=== PATIENT | male | born 1990 | race Two or more races ===

== ENCOUNTER 2022-11-11 13:05 | Inpatient (IN) | payer OTHER ==
[2022-11-11 13:43] VITALS: BMI 18.4
[2022-11-11] MEDS ORDERED: NALOXONE HCL 0.4 MG/ML VIAL IM PRN (15:17)
[2022-11-11] MEDS ORDERED: IBUPROFEN 400 MG TABLET (FP) PO PRN (15:17)
[2022-11-11] MEDS ORDERED: ONDANSETRON *ODT* 4 MG TABLET SL PRN (15:17)
[2022-11-11] MEDS ORDERED: LOPERAMIDE HCL 2 MG CAPSULE PO PRN (15:17)
[2022-11-11] MEDS ORDERED: ACETAMINOPHEN 325 MG TABLET (FP) PO PRN (15:17)
[2022-11-11] MEDS ORDERED: NICOTINE 10 MG CARTRIDGE (INHALER) IH PRN (15:17)
[2022-11-11] MEDS ORDERED: MAG HYDROX/AL HYDROX/SIMETH 30 ML UNIT-DOSE CUP PO PRN (15:17)
[2022-11-11] MEDS ORDERED: MAGNESIUM HYDROX 2400MG/30ML ORAL SUSPENSION 30 ML CUP PO PRN (15:17)
[2022-11-11] MEDS ORDERED: BENZONATATE 200 MG CAPSULE PO PRN (15:17)
[2022-11-11] MEDS ORDERED: BENZOCAINE/MENTHOL (CHLORASEPTIC ) LOZENGE MM PRN (15:17)
[2022-11-11] MEDS ORDERED: guaiFENesin 600 MG TABLET.ER (FP) PO PRN (15:17)
[2022-11-11] MEDS ORDERED: BISMUTH SUBSALICYLATE 524 MG/30 ML PO PRN (15:17)
[2022-11-11] MEDS ORDERED: IBUPROFEN 600 MG TABLET (FP) PO PRN (15:17)
[2022-11-11] MEDS ORDERED: NALOXONE HCL (KLOXXADO) 8 MG SPRAY NS PRN (15:17)
[2022-11-11] MEDS ORDERED: POLYETHYLENE GLYCOL (HEALTHYLAX) 3350 17 GM PACKET PO PRN (15:17)
[2022-11-11] MEDS ORDERED: DICYCLOMINE HCL 10 MG CAPSULE PO PRN (15:17)
[2022-11-11] MEDS ORDERED: cloNIDine HCL 0.1 MG TABLET PO PRN (15:17)
[2022-11-11] MEDS ORDERED: diazePAM 5 MG TABLET PO PRN (15:25)
[2022-11-11] MEDS ORDERED: methaDONE HCL 10 MG TABLET (FOR DETOX USE ONLY) PO ONE (16:00)
[2022-11-11] MEDS ORDERED: methaDONE HCL 10 MG TABLET (FOR DETOX USE ONLY) ONE (16:09)
[2022-11-11] MEDS: MELATONIN 5 MG TABLETS PO SCH (22:50)
[2022-11-11] MEDS: THIAMINE HCL 100 MG TABLET (FP) PO SCH (22:50)
[2022-11-12] MEDS: METHOCARBAMOL 500 MG TABLET PO PRN (10:44)
[2022-11-12] MEDS: PRENATAL VITAMINS W/ FOLIC ACID TABLET (FP) PO SCH (10:44)
[2022-11-12 17:48] LABS: HEMATOCRIT 39.8 % (35.4-49); HEMOGLOBIN 12.6 GM/dL (11.7-16.9); MCH 24.2 pg (25.7-33.7); MCHC 31.6 g/dl (32.0-35.9); MEAN CELL VOLUME 76.4 fl (80-96); MEAN PLT VOLUME 8.9 fl (7.5-11.1); PLATELET COUNT 267 10^3/uL (134-434); RBC 5.21 M/mm3 (4.00-5.60); RDW 14.8 % (11.9-15.9); WHITE BLOOD COUNT 6.7 K/mm3 (4.0-10.0)
[2022-11-12 18:00] LABS: POTASSIUM 4.2 mmol/L (3.5-5.1)
[2022-11-12 18:09] LABS: BLOOD UREA NITROGEN 17.4 mg/dL (7-18)
[2022-11-12 18:11] LABS: CALCIUM 9.1 mg/dL (8.5-10.1)
[2022-11-12 18:13] LABS: CREATININE 0.9 mg/dL (0.55-1.3)
[2022-11-12 18:15] LABS: TOT PROT 5.9 g/dl (6.4-8.2)
[2022-11-12 18:18] LABS: BILIRUBIN,TOTAL 0.3 mg/dL (0.2-1)
[2022-11-12] MEDS: THIAMINE HCL 100 MG TABLET (FP) PO SCH (22:36)
[2022-11-12] MEDS: MELATONIN 5 MG TABLETS PO SCH (22:36)
[2022-11-13] MEDS ORDERED: methaDONE HCL 10 MG TABLET (FOR DETOX USE ONLY) PO ONE (10:00)
[2022-11-13] MEDS: PRENATAL VITAMINS W/ FOLIC ACID TABLET (FP) PO SCH (10:12)
[2022-11-13] MEDS: MELATONIN 5 MG TABLETS PO SCH (22:12)
[2022-11-13] MEDS: THIAMINE HCL 100 MG TABLET (FP) PO SCH (22:12)
[2022-11-13] MEDS: METHOCARBAMOL 500 MG TABLET PO PRN (22:13)
[2022-11-13] MEDS: hydrOXYzine PAMOATE 25 MG CAPSULE (FP) PO PRN (22:13)
[2022-11-14] MEDS: PRENATAL VITAMINS W/ FOLIC ACID TABLET (FP) PO SCH (10:36)
[2022-11-14] MEDS: THIAMINE HCL 100 MG TABLET (FP) PO SCH (22:54)
[2022-11-14] MEDS: MELATONIN 5 MG TABLETS PO SCH (22:54)
[2022-11-15] MEDS ORDERED: methaDONE HCL 10 MG TABLET (FOR DETOX USE ONLY) PO ONE (10:00)
[2022-11-15] MEDS: PRENATAL VITAMINS W/ FOLIC ACID TABLET (FP) PO SCH (10:31)
[2022-11-15] MEDS: hydrOXYzine PAMOATE 25 MG CAPSULE (FP) PO PRN (22:08)
[2022-11-15] MEDS: MELATONIN 5 MG TABLETS PO SCH (22:08)
[2022-11-15] MEDS: THIAMINE HCL 100 MG TABLET (FP) PO SCH (22:08)
[2022-11-16 09:14] VITALS: BP 100/68; PULSE 80; RESP 17; TEMP 97.5
[2022-11-16] MEDS: PRENATAL VITAMINS W/ FOLIC ACID TABLET (FP) PO SCH (10:21)
== END 2022-11-16 10:07 | disposition home or self-care (01) | DRG 773 ==
LOC: YASAS 13:05 → Y3N 17:22
PROVIDERS: ADMIT Allergy & Immunology; ATTEND Surgery
PROC: HZ2ZZZZ Detoxification Services for Substance Abuse Treatment (ICD-10-PCS; principal; 2022-11-11)
DX: F11.23 Opioid dependence with withdrawal (principal); E86.0 Dehydration; F17.210 Nicotine dependence, cigarettes, uncomplicated
CPT/HCPCS: 36415; 80053; 85027; 86780; 93005; 93010; C9803-CS; U0003; U0005

== ENCOUNTER 2023-01-17 16:13 | Inpatient (IN) | payer OTHER ==
[2023-01-17 19:32] VITALS: BMI 21.4
[2023-01-17] MEDS ORDERED: ACETAMINOPHEN 325 MG TABLET (FP) PO PRN (21:45)
[2023-01-17] MEDS ORDERED: BENZONATATE 200 MG CAPSULE PO PRN (21:45)
[2023-01-17] MEDS ORDERED: guaiFENesin 600 MG TABLET.ER (FP) PO PRN (21:45)
[2023-01-17] MEDS ORDERED: BISMUTH SUBSALICYLATE 524 MG/30 ML PO PRN (21:45)
[2023-01-17] MEDS ORDERED: IBUPROFEN 400 MG TABLET (FP) PO PRN (21:45)
[2023-01-17] MEDS ORDERED: BENZOCAINE/MENTHOL (CHLORASEPTIC ) LOZENGE MM PRN (21:45)
[2023-01-17] MEDS ORDERED: NALOXONE HCL 0.4 MG/ML VIAL IM PRN (21:45)
[2023-01-17] MEDS ORDERED: ONDANSETRON *ODT* 4 MG TABLET SL PRN (21:45)
[2023-01-17] MEDS ORDERED: NICOTINE POLACRILEX 2 MG GUM BUC PRN (21:45)
[2023-01-17] MEDS ORDERED: MAG HYDROX/AL HYDROX/SIMETH 30 ML UNIT-DOSE CUP PO PRN (21:45)
[2023-01-17] MEDS ORDERED: P-EPHED 60MG/TRIPROLIDI 2.5MG TABLET PO PRN (21:45)
[2023-01-17] MEDS ORDERED: IBUPROFEN 600 MG TABLET (FP) PO PRN (21:45)
[2023-01-17] MEDS ORDERED: LOPERAMIDE HCL 2 MG CAPSULE PO PRN (21:45)
[2023-01-17] MEDS ORDERED: MAGNESIUM HYDROX 2400MG/30ML ORAL SUSPENSION 30 ML CUP PO PRN (21:45)
[2023-01-17] MEDS ORDERED: DICYCLOMINE HCL 10 MG CAPSULE PO PRN (21:45)
[2023-01-17] MEDS ORDERED: NALOXONE HCL (KLOXXADO) 8 MG SPRAY NS PRN (21:45)
[2023-01-17] MEDS ORDERED: POLYETHYLENE GLYCOL (HEALTHYLAX) 3350 17 GM PACKET PO PRN (21:45)
[2023-01-17] MEDS ORDERED: cloNIDine HCL 0.1 MG TABLET PO PRN (21:48)
[2023-01-17] MEDS: diazePAM 5 MG TABLET PO PRN (22:50)
[2023-01-17] MEDS: THIAMINE HCL 100 MG TABLET (FP) PO SCH (22:50)
[2023-01-17] MEDS: MELATONIN 5 MG TABLETS PO SCH (22:52)
[2023-01-18] MEDS ORDERED: methaDONE HCL 10 MG TABLET (FOR DETOX USE ONLY) PO ONE (09:28)
[2023-01-18] MEDS: PRENATAL VITAMINS W/ FOLIC ACID TABLET (FP) PO SCH (09:47)
[2023-01-18] MEDS: hydrOXYzine PAMOATE 25 MG CAPSULE (FP) PO PRN (09:48)
[2023-01-18] MEDS: METHOCARBAMOL 500 MG TABLET PO PRN (09:48)
[2023-01-18 11:41] LABS: HEMATOCRIT 38.3 % (35.4-49); HEMOGLOBIN 12.4 GM/dL (11.7-16.9); MCH 24.6 pg (25.7-33.7); MCHC 32.3 g/dl (32.0-35.9); MEAN CELL VOLUME 76.1 fl (80-96); MEAN PLT VOLUME 9.1 fl (7.5-11.1); PLATELET COUNT 300 10^3/uL (134-434); RBC 5.03 M/mm3 (4.00-5.60); RDW 14.8 % (11.9-15.9); WHITE BLOOD COUNT 9.8 K/mm3 (4.0-10.0)
[2023-01-18 12:17] LABS: CHLORIDE 109 mmol/L (98-107); POTASSIUM 4.5 mmol/L (3.5-5.1); SODIUM 144 mmol/L (136-145)
[2023-01-18 12:25] LABS: ANION GAP 6 MMOL/L (8-16); CO2 28 mmol/L (21-32)
[2023-01-18 12:26] LABS: BLOOD UREA NITROGEN 11.6 mg/dL (7-18); GLUCOSE,RANDOM 104 mg/dL (74-106)
[2023-01-18 12:28] LABS: CREATININE 0.7 mg/dL (0.55-1.3); SGPT/ALT 24 U/L (13-61)
[2023-01-18 12:29] LABS: SGOT/AST 13 U/L (15-37)
[2023-01-18 12:30] LABS: BILIRUBIN,TOTAL < 0.1 mg/dL (0.2-1); TOT PROT 6.1 g/dl (6.4-8.2)
[2023-01-18 12:31] LABS: ALK PHOS 98 U/L (45-117)
[2023-01-18] MEDS: MELATONIN 5 MG TABLETS PO SCH (22:51)
[2023-01-18] MEDS: THIAMINE HCL 100 MG TABLET (FP) PO SCH (22:51)
[2023-01-18] MEDS: diazePAM 5 MG TABLET PO PRN (22:52)
[2023-01-19] MEDS: hydrOXYzine PAMOATE 25 MG CAPSULE (FP) PO PRN (10:31)
[2023-01-19] MEDS: PRENATAL VITAMINS W/ FOLIC ACID TABLET (FP) PO SCH (10:31)
[2023-01-19] MEDS: diazePAM 5 MG TABLET PO PRN ×2 (10:32→22:52)
[2023-01-19] MEDS: THIAMINE HCL 100 MG TABLET (FP) PO SCH (22:52)
[2023-01-19] MEDS: MELATONIN 5 MG TABLETS PO SCH (22:52)
[2023-01-20] MEDS ORDERED: methaDONE HCL 10 MG TABLET (FOR DETOX USE ONLY) PO ONE (10:00)
[2023-01-20] MEDS: hydrOXYzine PAMOATE 25 MG CAPSULE (FP) PO PRN (10:45)
[2023-01-20] MEDS: METHOCARBAMOL 500 MG TABLET PO PRN (10:45)
[2023-01-20] MEDS: PRENATAL VITAMINS W/ FOLIC ACID TABLET (FP) PO SCH (10:45)
[2023-01-20] MEDS: MELATONIN 5 MG TABLETS PO SCH (22:34)
[2023-01-20] MEDS: THIAMINE HCL 100 MG TABLET (FP) PO SCH (22:34)
[2023-01-21] MEDS: hydrOXYzine PAMOATE 25 MG CAPSULE (FP) PO PRN (10:04)
[2023-01-21] MEDS: PRENATAL VITAMINS W/ FOLIC ACID TABLET (FP) PO SCH (10:04)
[2023-01-21] MEDS: METHOCARBAMOL 500 MG TABLET PO PRN (10:04)
[2023-01-21 17:07] VITALS: RESP 16
[2023-01-22] MEDS: THIAMINE HCL 100 MG TABLET (FP) PO SCH (00:10)
[2023-01-22] MEDS: MELATONIN 5 MG TABLETS PO SCH (00:10)
[2023-01-22 09:29] VITALS: BP 109/59; PULSE 78; TEMP 97.3
[2023-01-22] MEDS ORDERED: methaDONE HCL 10 MG TABLET (FOR DETOX USE ONLY) PO ONE (10:00)
[2023-01-22] MEDS: METHOCARBAMOL 500 MG TABLET PO PRN (10:13)
[2023-01-22] MEDS: hydrOXYzine PAMOATE 25 MG CAPSULE (FP) PO PRN (10:13)
[2023-01-22] MEDS: PRENATAL VITAMINS W/ FOLIC ACID TABLET (FP) PO SCH (10:13)
== END 2023-01-22 12:05 | disposition home or self-care (01) | DRG 773 ==
LOC: YASAS 16:13 → Y6N 22:19
PROVIDERS: ADMIT Allergy & Immunology; ATTEND Surgery
PROC: HZ2ZZZZ Detoxification Services for Substance Abuse Treatment (ICD-10-PCS; principal; 2023-01-17)
DX: F11.23 Opioid dependence with withdrawal (principal); F15.10 Other stimulant abuse, uncomplicated; F17.290 Nicotine dependence, other tobacco product, uncomplicated
CPT/HCPCS: 36415; 80053; 85027; 86780; 87635

== ENCOUNTER 2023-09-28 16:38 | Inpatient (IN) | payer OTHER ==
[2023-09-28 17:37] VITALS: BMI 20.3
[2023-09-28] MEDS ORDERED: BENZOCAINE/MENTHOL (CHLORASEPTIC ) LOZENGE MM PRN (18:22)
[2023-09-28] MEDS ORDERED: NICOTINE POLACRILEX 2 MG GUM BUC PRN (18:22)
[2023-09-28] MEDS ORDERED: POLYETHYLENE GLYCOL (HEALTHYLAX) 3350 17 GM PACKET PO PRN (18:22)
[2023-09-28] MEDS ORDERED: IBUPROFEN 400 MG TABLET (FP) PO PRN (18:22)
[2023-09-28] MEDS ORDERED: NALOXONE HCL 0.4 MG/ML VIAL IM PRN (18:22)
[2023-09-28] MEDS ORDERED: MAGNESIUM HYDROX 2400MG/30ML ORAL SUSPENSION 30 ML CUP PO PRN (18:22)
[2023-09-28] MEDS ORDERED: IBUPROFEN 600 MG TABLET (FP) PO PRN (18:22)
[2023-09-28] MEDS ORDERED: BISMUTH SUBSALICYLATE 524 MG/30 ML PO PRN (18:22)
[2023-09-28] MEDS ORDERED: NALOXONE HCL (KLOXXADO) 8 MG SPRAY NS PRN (18:22)
[2023-09-28] MEDS ORDERED: LOPERAMIDE HCL 2 MG CAPSULE PO PRN (18:22)
[2023-09-28] MEDS ORDERED: MAG HYDROX/AL HYDROX/SIMETH 30 ML UNIT-DOSE CUP PO PRN (18:22)
[2023-09-28] MEDS ORDERED: BENZONATATE 200 MG CAPSULE PO PRN (18:22)
[2023-09-28] MEDS ORDERED: DICYCLOMINE HCL 10 MG CAPSULE PO PRN (18:22)
[2023-09-28] MEDS ORDERED: ONDANSETRON *ODT* 4 MG TABLET SL PRN (18:22)
[2023-09-28] MEDS ORDERED: guaiFENesin 600 MG TABLET.ER (FP) PO PRN (18:22)
[2023-09-28] MEDS ORDERED: ACETAMINOPHEN 325 MG TABLET (FP) PO PRN (18:22)
[2023-09-28] MEDS: MELATONIN 5 MG TABLETS PO SCH (22:29)
[2023-09-28] MEDS: THIAMINE HCL 100 MG TABLET (FP) PO SCH (22:29)
[2023-09-29] MEDS ORDERED: cloNIDine HCL 0.1 MG TABLET PO PRN (09:58)
[2023-09-29] MEDS: PRENATAL VITAMINS W/ FOLIC ACID TABLET (FP) PO SCH (10:33)
[2023-09-29] MEDS: methaDONE HCL 10 MG TABLET (FOR DETOX USE ONLY) PO ONE (10:33)
[2023-09-29 15:25] LABS: POTASSIUM 4.2 mmol/L (3.5-5.1)
[2023-09-29 15:26] LABS: CALCIUM 8.7 mg/dL (8.5-10.1)
[2023-09-29 15:27] LABS: ALBUMIN 3.1 g/dl (3.4-5.0); BLOOD UREA NITROGEN 17.5 mg/dL (7-18)
[2023-09-29 15:30] LABS: CREATININE 0.7 mg/dL (0.55-1.3)
[2023-09-29 15:32] LABS: BILIRUBIN,TOTAL 0.2 mg/dL (0.2-1); TOT PROT 6.1 g/dl (6.4-8.2)
[2023-09-29 15:40] LABS: HEMATOCRIT 40.2 % (35.4-49); HEMOGLOBIN 12.5 GM/dL (11.7-16.9); MCH 24.7 pg (25.7-33.7); MEAN CELL VOLUME 79.8 fl (80-96); MEAN PLT VOLUME 9.4 fl (7.5-11.1); PLATELET COUNT 326 10^3/uL (134-434); RBC 5.04 M/mm3 (4.00-5.60); RDW 14.8 % (11.9-15.9); WHITE BLOOD COUNT 6.6 K/mm3 (4.0-10.0)
[2023-09-29] MEDS: METHOCARBAMOL 500 MG TABLET PO PRN (22:27)
[2023-10-01] MEDS: methaDONE HCL 10 MG TABLET (FOR DETOX USE ONLY) PO ONE (09:24)
[2023-10-01 21:06] VITALS: BP 101/61; PULSE 74; RESP 16; TEMP 98.4
[2023-10-03] MEDS ORDERED: methaDONE HCL 10 MG TABLET (FOR DETOX USE ONLY) PO ONE (10:00)
== END 2023-10-01 22:07 | disposition left against medical advice (07) | DRG 770 ==
LOC: YASAS 16:38 → Y3N 18:41
PROVIDERS: ADMIT Allergy & Immunology; ATTEND Surgery
PROC: HZ2ZZZZ Detoxification Services for Substance Abuse Treatment (ICD-10-PCS; principal; 2023-09-28)
DX: F11.23 Opioid dependence with withdrawal (principal); F17.290 Nicotine dependence, other tobacco product, uncomplicated; Z28.310 Unvaccinated for COVID-19; Z28.9 Immunization not carried out for unspecified reason
CPT/HCPCS: 36415; 80053; 85027; 86780; 93005; 93010

== ENCOUNTER 2024-02-17 12:42 | Inpatient (IN) | payer OTHER ==
[2024-02-17 13:32] VITALS: BMI 18.4
[2024-02-17] MEDS ORDERED: NALOXONE (NARCAN) HCL 4 MG/0.1 ML SPRAY NS PRN (19:10)
[2024-02-17] MEDS ORDERED: DICYCLOMINE HCL 10 MG CAPSULE PO PRN (19:10)
[2024-02-17] MEDS ORDERED: BENZONATATE 200 MG CAPSULE PO PRN (19:10)
[2024-02-17] MEDS ORDERED: NALOXONE HCL 0.4 MG/ML VIAL IM PRN (19:10)
[2024-02-17] MEDS ORDERED: MAG HYDROX/AL HYDROX/SIMETH 30 ML UNIT-DOSE CUP PO PRN (19:10)
[2024-02-17] MEDS ORDERED: ONDANSETRON *ODT* 4 MG TABLET SL PRN (19:10)
[2024-02-17] MEDS ORDERED: POLYETHYLENE GLYCOL (HEALTHYLAX) 3350 17 GM PACKET PO PRN (19:10)
[2024-02-17] MEDS ORDERED: BISMUTH SUBSALICYLATE 524 MG/30 ML PO PRN (19:10)
[2024-02-17] MEDS ORDERED: MAGNESIUM HYDROX 2400MG/30ML ORAL SUSPENSION 30 ML CUP PO PRN (19:10)
[2024-02-17] MEDS ORDERED: IBUPROFEN 400 MG TABLET (FP) PO PRN (19:10)
[2024-02-17] MEDS ORDERED: IBUPROFEN 600 MG TABLET (FP) PO PRN (19:10)
[2024-02-17] MEDS ORDERED: BENZOCAINE/MENTHOL (CHLORASEPTIC ) LOZENGE MM PRN (19:10)
[2024-02-17] MEDS ORDERED: guaiFENesin 600 MG TABLET.ER (FP) PO PRN (19:10)
[2024-02-17] MEDS ORDERED: LOPERAMIDE HCL 2 MG CAPSULE PO PRN (19:10)
[2024-02-17] MEDS ORDERED: ACETAMINOPHEN 325 MG TABLET (FP) PO PRN (19:10)
[2024-02-17] MEDS: METHOCARBAMOL 500 MG TABLET PO PRN (19:52)
[2024-02-17] MEDS: hydrOXYzine PAMOATE 25 MG CAPSULE (FP) PO PRN (19:52)
[2024-02-17] MEDS: MELATONIN 5 MG TABLETS PO SCH (22:36)
[2024-02-17] MEDS: THIAMINE 100 MG TABLET PO SCH (22:36)
[2024-02-18] MEDS: PRENATAL VITAMINS W/ FOLIC ACID TABLET (FP) PO SCH (10:35)
[2024-02-18] MEDS ORDERED: cloNIDine HCL 0.1 MG TABLET PO PRN (11:02)
[2024-02-18 11:05] LABS: CHLORIDE 107 mmol/L (98-107); HEMATOCRIT 39.1 % (35.4-49); HEMOGLOBIN 12.1 GM/dL (11.7-16.9); MCH 24.3 pg (25.7-33.7); MCHC 30.9 g/dl (32.0-35.9); MEAN CELL VOLUME 78.8 fl (80-96); MEAN PLT VOLUME 8.6 fl (7.5-11.1); PLATELET COUNT 337 10^3/uL (134-434); POTASSIUM 4.7 mmol/L (3.5-5.1); RBC 4.96 M/mm3 (4.00-5.60); RDW 15.1 % (11.9-15.9); SODIUM 139 mmol/L (136-145); WHITE BLOOD COUNT 5.5 K/mm3 (4.0-10.0)
[2024-02-18 11:06] LABS: CALCIUM 9.2 mg/dL (8.5-10.1)
[2024-02-18 11:07] LABS: ALBUMIN 3.2 g/dl (3.4-5.0); ANION GAP 3 mmol/L (4-13); BLOOD UREA NITROGEN 20.5 mg/dL (7-18); CO2 29 mmol/L (21-32); GLUCOSE,RANDOM 95 mg/dL (74-106)
[2024-02-18 11:10] LABS: CREATININE 0.7 mg/dL (0.55-1.3); SGOT/AST 13 U/L (15-37); SGPT/ALT 17 U/L (13-61)
[2024-02-18 11:11] LABS: BILIRUBIN,TOTAL 0.5 mg/dL (0.2-1)
[2024-02-18 11:13] LABS: ALK PHOS 78 U/L (45-117)
[2024-02-18] MEDS: methaDONE HCL 10 MG TABLET (FOR DETOX USE ONLY) PO ONE (11:32)
[2024-02-18] MEDS: diazePAM 5 MG TABLET PO PRN (11:32)
[2024-02-20] MEDS: methaDONE HCL 10 MG TABLET (FOR DETOX USE ONLY) PO ONE (10:21)
[2024-02-22 06:27] VITALS: RESP 18
[2024-02-22 08:46] VITALS: BP 113/70; PULSE 78; TEMP 96.7
[2024-02-22] MEDS: methaDONE HCL 10 MG TABLET (FOR DETOX USE ONLY) PO ONE (10:29)
== END 2024-02-22 02:27 | disposition home or self-care (01) | DRG 773 ==
LOC: YASAS 12:42 → Y3N 19:17
PROVIDERS: ADMIT Surgery; ATTEND Surgery
PROC: HZ2ZZZZ Detoxification Services for Substance Abuse Treatment (ICD-10-PCS; principal; 2024-02-17)
DX: F11.23 Opioid dependence with withdrawal (principal); F15.20 Other stimulant dependence, uncomplicated; F17.290 Nicotine dependence, other tobacco product, uncomplicated; Z59.01 Sheltered homelessness
CPT/HCPCS: 36415; 80053; 80305; 80307; 85027; 86780; 93005; 93010

== ENCOUNTER 2024-04-13 08:51 | Inpatient (IN) | payer OTHER ==
[2024-04-13 10:23] VITALS: BMI 19.0
[2024-04-13] MEDS ORDERED: guaiFENesin 600 MG TABLET.ER (FP) PO PRN (11:34)
[2024-04-13] MEDS ORDERED: NALOXONE (NARCAN) HCL 4 MG/0.1 ML SPRAY NS PRN (11:34)
[2024-04-13] MEDS ORDERED: BENZOCAINE/MENTHOL (CHLORASEPTIC ) LOZENGE MM PRN (11:34)
[2024-04-13] MEDS ORDERED: BENZONATATE 200 MG CAPSULE PO PRN (11:34)
[2024-04-13] MEDS ORDERED: ONDANSETRON *ODT* 4 MG TABLET SL PRN (11:34)
[2024-04-13] MEDS ORDERED: DICYCLOMINE HCL 10 MG CAPSULE PO PRN (11:34)
[2024-04-13] MEDS ORDERED: MAGNESIUM HYDROX 2400MG/30ML ORAL SUSPENSION 30 ML CUP PO PRN (11:34)
[2024-04-13] MEDS ORDERED: MAG HYDROX/AL HYDROX/SIMETH 30 ML UNIT-DOSE CUP PO PRN (11:34)
[2024-04-13] MEDS ORDERED: LOPERAMIDE HCL 2 MG CAPSULE PO PRN (11:34)
[2024-04-13] MEDS ORDERED: ACETAMINOPHEN 325 MG TABLET (FP) PO PRN (11:34)
[2024-04-13] MEDS ORDERED: hydrOXYzine PAMOATE 25 MG CAPSULE (FP) PO PRN (11:34)
[2024-04-13] MEDS ORDERED: BISMUTH SUBSALICYLATE 524 MG/30 ML PO PRN (11:34)
[2024-04-13] MEDS ORDERED: IBUPROFEN 400 MG TABLET (FP) PO PRN (11:34)
[2024-04-13] MEDS ORDERED: POLYETHYLENE GLYCOL (HEALTHYLAX) 3350 17 GM PACKET PO PRN (11:34)
[2024-04-13] MEDS ORDERED: cloNIDine HCL 0.1 MG TABLET PO PRN (11:45)
[2024-04-13] MEDS: methaDONE HCL 10 MG TABLET (FOR DETOX USE ONLY) PO ONE (17:33)
[2024-04-13] MEDS: MELATONIN 5 MG TABLETS PO SCH (22:47)
[2024-04-13] MEDS: THIAMINE 100 MG TABLET PO SCH (22:47)
[2024-04-14] MEDS: NICOTINE 14 MG/24 HOURS TOPICAL PATCH TD SCH (09:48)
[2024-04-14] MEDS: PRENATAL VITAMINS W/ FOLIC ACID TABLET (FP) PO SCH (09:48)
[2024-04-14 14:05] LABS: HEMATOCRIT 41.6 % (35.4-49); HEMOGLOBIN 12.8 GM/dL (11.7-16.9); MCH 24.5 pg (25.7-33.7); MCHC 30.7 g/dl (32.0-35.9); MEAN CELL VOLUME 79.8 fl (80-96); MEAN PLT VOLUME 8.8 fl (7.5-11.1); PLATELET COUNT 306 10^3/uL (134-434); RBC 5.22 M/mm3 (4.00-5.60); RDW 15.1 % (11.9-15.9); WHITE BLOOD COUNT 5.1 K/mm3 (4.0-10.0)
[2024-04-14 14:31] LABS: CHLORIDE 111 mmol/L (98-107); POTASSIUM 4.4 mmol/L (3.5-5.1); SODIUM 139 mmol/L (136-145)
[2024-04-14 14:33] LABS: BLOOD UREA NITROGEN 8.7 mg/dL (7-18); CALCIUM 8.9 mg/dL (8.5-10.1)
[2024-04-14 14:34] LABS: ALBUMIN 3.2 g/dl (3.4-5.0); ANION GAP -1 mmol/L (4-13); CO2 29 mmol/L (21-32); GLUCOSE,RANDOM 103 mg/dL (74-106)
[2024-04-14 14:37] LABS: CREATININE 0.7 mg/dL (0.55-1.3); SGOT/AST 16 U/L (15-37); SGPT/ALT 22 U/L (13-61)
[2024-04-14 14:39] LABS: TOT PROT 6.3 g/dl (6.4-8.2)
[2024-04-14 14:40] LABS: ALK PHOS 86 U/L (45-117)
[2024-04-14 14:48] LABS: BILIRUBIN,TOTAL 0.1 mg/dL (0.2-1)
[2024-04-15] MEDS: methaDONE HCL 10 MG TABLET (FOR DETOX USE ONLY) PO ONE (09:57)
[2024-04-17] MEDS: methaDONE HCL 10 MG TABLET (FOR DETOX USE ONLY) PO ONE (10:51)
[2024-04-17] MEDS: IBUPROFEN 600 MG TABLET (FP) PO PRN (17:15)
[2024-04-17] MEDS: METHOCARBAMOL 500 MG TABLET PO PRN (17:15)
[2024-04-17] MEDS: BACITRACIN 0.9 GM PACKET TP ONE (23:32)
[2024-04-18 09:26] VITALS: BP 102/61; PULSE 74; RESP 18; TEMP 97.5
[2024-04-18] MEDS: NALOXONE (NYS OPIOID OVERDOSE PROGRAM) 4 MG/0.1 ML SPRAY NS PRN (12:05)
== END 2024-04-18 11:05 | disposition other institution (70) | DRG 773 ==
LOC: YASAS 08:51 → Y6N 12:03
PROVIDERS: ADMIT Surgery; ATTEND Allergy & Immunology
PROC: HZ2ZZZZ Detoxification Services for Substance Abuse Treatment (ICD-10-PCS; principal; 2024-04-13)
DX: F11.23 Opioid dependence with withdrawal (principal); F10.20 Alcohol dependence, uncomplicated; F14.20 Cocaine dependence, uncomplicated; F15.10 Other stimulant abuse, uncomplicated; F17.290 Nicotine dependence, other tobacco product, uncomplicated; F19.282 Other psychoactive substance dependence with psychoactive substance-induced sleep disorder; F19.24 Other psychoactive substance dependence with psychoactive substance-induced mood disorder
CPT/HCPCS: 36415; 80053; 80305; 80307; 85027; 86780; 93005; 93010

== ENCOUNTER 2024-05-26 17:39 | Inpatient (IN) | payer OTHER ==
[2024-05-26] MEDS ORDERED: ONDANSETRON *ODT* 4 MG TABLET SL PRN ×2 (19:07→23:12)
[2024-05-26] MEDS ORDERED: NALOXONE (NARCAN) HCL 4 MG/0.1 ML SPRAY NS PRN ×2 (19:07→23:12)
[2024-05-26] MEDS ORDERED: LOPERAMIDE HCL 2 MG CAPSULE PO PRN ×2 (19:07→23:12)
[2024-05-26] MEDS ORDERED: POLYETHYLENE GLYCOL (HEALTHYLAX) 3350 17 GM PACKET PO PRN ×2 (19:07→23:12)
[2024-05-26] MEDS ORDERED: hydrOXYzine PAMOATE 25 MG CAPSULE (FP) PO PRN (19:07)
[2024-05-26] MEDS ORDERED: DICYCLOMINE HCL 10 MG CAPSULE PO PRN ×2 (19:07→23:12)
[2024-05-26] MEDS ORDERED: MAG HYDROX/AL HYDROX/SIMETH 30 ML UNIT-DOSE CUP PO PRN ×2 (19:07→23:12)
[2024-05-26] MEDS ORDERED: BENZONATATE 200 MG CAPSULE PO PRN ×2 (19:07→23:12)
[2024-05-26] MEDS ORDERED: IBUPROFEN 400 MG TABLET (FP) PO PRN ×2 (19:07→23:12)
[2024-05-26] MEDS ORDERED: BENZOCAINE/MENTHOL (CHLORASEPTIC ) LOZENGE MM PRN ×2 (19:07→23:12)
[2024-05-26] MEDS ORDERED: METHOCARBAMOL 500 MG TABLET PO PRN (19:07)
[2024-05-26] MEDS ORDERED: NICOTINE POLACRILEX 2 MG GUM BUC PRN ×2 (19:07→23:12)
[2024-05-26] MEDS ORDERED: ACETAMINOPHEN 325 MG TABLET (FP) PO PRN ×2 (19:07→23:12)
[2024-05-26] MEDS ORDERED: IBUPROFEN 600 MG TABLET (FP) PO PRN (19:07)
[2024-05-26] MEDS ORDERED: guaiFENesin 600 MG TABLET.ER (FP) PO PRN ×2 (19:07→23:12)
[2024-05-26] MEDS ORDERED: BISMUTH SUBSALICYLATE 524 MG/30 ML PO PRN (19:07)
[2024-05-26] MEDS ORDERED: MAGNESIUM HYDROX 2400MG/30ML ORAL SUSPENSION 30 ML CUP PO PRN ×2 (19:07→23:12)
[2024-05-26] MEDS ORDERED: MELATONIN 5 MG TABLETS PO SCH (22:00)
[2024-05-26] MEDS ORDERED: THIAMINE 100 MG TABLET PO SCH (22:00)
[2024-05-26] MEDS ORDERED: methaDONE HCL 10 MG TABLET (FOR DETOX USE ONLY) PO PRN (23:14)
[2024-05-26] MEDS ORDERED: cloNIDine HCL 0.1 MG TABLET PO PRN (23:14)
[2024-05-27] MEDS ORDERED: methaDONE HCL 10 MG TABLET (FOR DETOX USE ONLY) ONE (00:03)
[2024-05-27] MEDS: methaDONE HCL 10 MG TABLET (FOR DETOX USE ONLY) PO ONE (00:08)
[2024-05-27] MEDS: PRENATAL VITAMINS W/ FOLIC ACID TABLET (FP) PO SCH (09:53)
[2024-05-27] MEDS: NICOTINE 14 MG/24 HOURS TOPICAL PATCH TD SCH (09:54)
[2024-05-27] MEDS ORDERED: NICOTINE 21 MG/24 HOURS TOPICAL PATCH TD SCH (10:00)
[2024-05-27] MEDS ORDERED: PRENATAL VITAMINS W/ FOLIC ACID TABLET (FP) PO SCH (10:00)
[2024-05-27 12:56] LABS: CHLORIDE 108 mmol/L (98-107); POTASSIUM 3.9 mmol/L (3.5-5.1); SODIUM 141 mmol/L (136-145)
[2024-05-27 12:57] LABS: HEMATOCRIT 38.5 % (35.4-49); HEMOGLOBIN 11.7 GM/dL (11.7-16.9); MCH 24.3 pg (25.7-33.7); MCHC 30.5 g/dl (32.0-35.9); MEAN CELL VOLUME 79.7 fl (80-96); MEAN PLT VOLUME 8.4 fl (7.5-11.1); PLATELET COUNT 367 10^3/uL (134-434); RBC 4.83 M/mm3 (4.00-5.60); RDW 14.6 % (11.9-15.9)
[2024-05-27 13:10] LABS: ALBUMIN 2.9 g/dl (3.4-5.0); ANION GAP 5 mmol/L (4-13); BLOOD UREA NITROGEN 13.8 mg/dL (7-18); CALCIUM 9.1 mg/dL (8.5-10.1); CO2 28 mmol/L (21-32); GLUCOSE,RANDOM 104 mg/dL (74-106)
[2024-05-27 13:13] LABS: CREATININE 0.7 mg/dL (0.55-1.3); SGOT/AST 19 U/L (15-37); SGPT/ALT 31 U/L (13-61)
[2024-05-27 13:15] LABS: TOT PROT 6.2 g/dl (6.4-8.2)
[2024-05-27 13:16] LABS: ALK PHOS 82 U/L (45-117)
[2024-05-27 13:28] LABS: BILIRUBIN,TOTAL 0.2 mg/dL (0.2-1)
[2024-05-27] MEDS: MELATONIN 5 MG TABLETS PO SCH (22:30)
[2024-05-27] MEDS: THIAMINE 100 MG TABLET PO SCH (22:30)
[2024-05-28] MEDS: methaDONE HCL 10 MG TABLET (FOR DETOX USE ONLY) PO ONE (09:58)
[2024-05-29] MEDS: methaDONE HCL 10 MG TABLET PO ONE (14:40)
[2024-05-30] MEDS ORDERED: methaDONE HCL 10 MG TABLET PO ONE (10:00)
[2024-05-30] MEDS ORDERED: methaDONE HCL 10 MG TABLET (FOR DETOX USE ONLY) PO ONE (10:00)
[2024-05-30] MEDS: IBUPROFEN 600 MG TABLET (FP) PO PRN (19:36)
[2024-05-30] MEDS: hydrOXYzine PAMOATE 25 MG CAPSULE (FP) PO PRN (19:36)
[2024-05-30] MEDS: METHOCARBAMOL 500 MG TABLET PO PRN (19:36)
[2024-05-30] MEDS: BISMUTH SUBSALICYLATE 524 MG/30 ML PO PRN (21:04)
[2024-05-31] MEDS ORDERED: methaDONE HCL 10 MG TABLET PO ONE (09:00)
[2024-06-01] MEDS: NALOXONE (NYS OPIOID OVERDOSE PROGRAM) 4 MG/0.1 ML SPRAY NS SCH (09:31)
[2024-06-01 09:36] VITALS: BP 100/66; PULSE 69; RESP 18; TEMP 97.3
[2024-06-01] MEDS: methaDONE 40 MG, methaDONE 10 MG PO ONE (09:39)
[2024-06-02] MEDS ORDERED: methaDONE 40 MG, methaDONE 10 MG PO ONE (06:00)
== END 2024-06-01 10:16 | disposition home or self-care (01) | DRG 773 ==
LOC: YASAS 17:39 → Y6N 22:20
PROVIDERS: ADMIT Allergy & Immunology; ATTEND Surgery
PROC: HZ2ZZZZ Detoxification Services for Substance Abuse Treatment (ICD-10-PCS; principal; 2024-05-26)
DX: F11.23 Opioid dependence with withdrawal (principal); F15.20 Other stimulant dependence, uncomplicated; F17.210 Nicotine dependence, cigarettes, uncomplicated; F19.282 Other psychoactive substance dependence with psychoactive substance-induced sleep disorder; F19.24 Other psychoactive substance dependence with psychoactive substance-induced mood disorder
CPT/HCPCS: 36415; 80053; 80305; 80307; 85027; 86780; 93005; 93010